=== PATIENT | female | born 1930 | race Hispanic/Latino ===

== ENCOUNTER 2021-12-13 14:46 | Emergency (ER) | payer OTHER, MEDICARE ==
[~2021-12-13] VITALS: Ht 149.9 cm; Wt 54.0 kg
[2021-12-13 14:53] VITALS: BP 100/46
[2021-12-13] MEDS ORDERED: ACETAMINOPHEN 325 MG TAB PO STA (16:07)
[2021-12-13 16:39] LABS: BASOPHILS % (AUTO) 1.1 % (0.0-5.0); EOSINOPHILS % (AUTO) 3.7 % (0.0-8.0); HEMATOCRIT 37.7 % (36-48); LYMPHOCYTES % (AUTO) 14.5 % (21.0-51.0); MEAN CORPUSCULAR HGB CONC 31.8 g/dL (32.0-36.0); MEAN CORPUSCULAR VOLUME 87.9 fL (79-99); MONOCYTES % (AUTO) 7.9 % (3.0-13.0); NEUTROPHILS % (AUTO) 72.3 % (40.0-77.0); PLATELET COUNT (AUTO) 379 K/uL (130-400); RED BLOOD CELL COUNT(AUTO) 4.29 MIL/uL (4.00-5.50); RED CELL DISTRIBUTION WIDTH 14.5 % (11.0-15.5); WHITE BLOOD COUNT (AUTO) 7.4 K/uL (4.8-10.8)
[2021-12-13 16:50] LABS: CREATININE 1.5 mg/dL (0.5-1.5); POTASSIUM 4.5 mmol/L (3.5-5.1)
[2021-12-13 16:55] LABS: ALBUMIN 3.2 g/dL (3.5-5.0); TOTAL PROTEIN, SERUM 7.7 g/dL (6.0-8.3)
[2021-12-13] MEDS ORDERED: ACET-66 PO (18:33)
== END 2021-12-13 18:56 | disposition home or self-care (01) ==
LOC: EDH 14:46
DX: M79.642 Pain in left hand (principal); R10.9 Unspecified abdominal pain; R07.81 Pleurodynia; I10 Essential (primary) hypertension; Z88.8 Allergy status to other drugs, medicaments and biological substances; Z90.49 Acquired absence of other specified parts of digestive tract; Z95.810 Presence of automatic (implantable) cardiac defibrillator; W18.2XXA Fall in (into) shower or empty bathtub, initial encounter; Y93.E1 Activity, personal bathing and showering; Y92.89 Other specified places as the place of occurrence of the external cause; Y99.8 Other external cause status
CPT/HCPCS: 36415; 73130; 74176; 80053; 85025